=== PATIENT | male | born 1985 | race American Indian/Alaskan Native ===

== ENCOUNTER 2018-07-02 11:02 | Emergency (ER) | payer SELFPAY ==
--- NOTE | 2018-07-02 12:30 | Emergency Department Report ---
Vomiting/Diarrhea - HPI Chief Complaint: Abdominal Pain Stated Complaint: STOMACH PAIN/VOMIT Time Seen by Provider: 07/02/18 12:10 Duration: 3 Days Severity: moderate Nausea/Vomiting Severity: Moderate Diarrhea Severity: None Pain Location: Epigastric Pain Severity: Moderate Symptoms: No Watery Diarrhea, No Bloody diarrhea, No Fever, No Able to Tolerate Fluids, No Recent Unusual Foods, No Recent Untreated Water, No Recent use of Antibiotics, No Family w/ Similar Symptoms, No Contacts w/ Similar Symptoms, No Rash, No Hematuria, No Recent URI Symptoms Other History: This is a 29-year-old male who presents with intermittent abdominal pain for 3 days. Patient states he was seen here in this emergency room on June 24 on pain medication which helped for a few days. Patient states the vomiting increase in abdominal cramping feels like something is falling of episodic epigastric region. He also complains of right side jaw swelling and toothache. His vomiting has aggravated known cavity on the right lower side. He is able to drink but everything come up shortly after drinking or eating. Patient denies fever, frequency, urgency, dysuria, penile discharge , cough, chest pain, or shortness of breath. ED Review of Systems ROS: Stated complaint: STOMACH PAIN/VOMIT Other details as noted in HPI Constitutional: denies: chills, fever ENT: dental pain. denies: ear pain, throat pain, congestion Respiratory: denies: cough, shortness of breath, wheezing Cardiovascular: denies: chest pain, palpitations Gastrointestinal: abdominal pain (epigastric pain), nausea, vomiting. denies: diarrhea, constipation, hematochezia Genitourinary: denies: urgency, dysuria Skin: denies: rash, lesions Neurological: denies: headache, weakness, paresthesias ED Past Medical Hx - Past Medical History Previous Medical History?: No - Surgical History Past Surgical History?: No - Social History Smoking Status: Never Smoker Substance Use Type: None - Medications Home Medications: Home Medications Medication Instructions Recorded Confirmed Last Taken Type Cyclobenzaprine HCl [Flexeril 5 MG 5 mg PO Q8HR PRN #15 tablet 08/30/15 Unknown Rx TAB] traMADol [Ultram 50 MG tab] 50 mg PO Q6HR PRN #15 tablet 08/30/15 Unknown Rx Famotidine [Pepcid] 20 mg PO BID #20 tablet 06/24/18 Unknown Rx HYDROcodone/APAP 5-325 [[place] 1 each PO Q6HR PRN #7 tablet 06/24/18 Unknown Rx 5/325] Amoxicillin 500 mg PO BID #14 capsule 07/02/18 Unknown Rx Naproxen [Naprosyn] 500 mg PO TID #12 tablet 07/02/18 Unknown Rx Omeprazole 40 mg PO DAILY #30 capsule.dr 07/02/18 Unknown Rx Ondansetron [Zofran Odt] 4 mg PO TID PRN #10 tab.rapdis 07/02/18 Unknown Rx amLODIPine [Norvasc] 5 mg PO DAILY #14 tab 07/02/18 Unknown Rx hydroCHLOROthiazide 12.5 mg PO DAILY #14 tablet 07/02/18 Unknown Rx [Hydrochlorothiazide] Vomiting Diarrhea Exam - Exam General: Vital signs noted. No distress. Alert and acting appropriately. HEENT: Yes Moist Mucous Membranes (dental caries #28, mucosal swelling), No Pharyngeal Erythema, No Pharyngeal Exudates, No Rhinorrhea, No Conjuctival Injection, No Frontal Tenderness, No Maxillary Tenderness Neck: No Adenopathy, No Rigidity Lungs: Yes Clear Lung Sounds, Yes Good Air Exchange, No Wheezes, No Stridor, No Cough, No Nasal Flaring, No Retractions, No Use of Accessory Muscles Heart exam: Regular: Yes, Murmur: No, Tachycardia: No Abdomen: Tenderness: No, Peritoneal Signs: No, Distention: No, Hyperactive Bowel sounds: No Skin exam: Rash: No, Edema: No, Normal turgor: Yes Neurologic: Alert and oriented, no deficits. Musculoskeletal: Unremarkable. ED Course Vital Signs 07/02/18 11:42 Temperature 97.8 F Pulse Rate 93 H Respiratory 18 Rate Blood Pressure 195/111 O2 Sat by Pulse 99 Oximetry Vital Signs 07/02/18 07/02/18 11:42 14:35 Temperature 97.8 F Pulse Rate 93 H 90 Respiratory 18 18 Rate Blood Pressure 195/111 Blood Pressure 158/108 [Right] O2 Sat by Pulse 99 Oximetry ED Medical Decision Making - Lab Data Result diagrams: 07/02/18 13:22 07/02/18 13:22 Lab Results 07/02/18 07/02/18 07/02/18 Range/Units 13:22 13:22 Unknown WBC 5.2 (4.5-11.0) K/mm3 RBC 5.72 H (3.65-5.03) M/mm3 Hgb 14.5 (11.8-15.2) gm/dl Hct 45.6 (35.5-45.6) % MCV 80 L (84-94) fl MCH 25 L (28-32) pg MCHC 32 (32-34) % RDW 13.7 (13.2-15.2) % Plt Count 241 (140-440) K/mm3 [place] % (Auto) Kennel Supervisor Sodium 139 (137-145) mmol/L Potassium 4.7 (3.6-5.0) mmol/L Chloride 97.3 L (98-107) mmol/L Carbon Dioxide 30 (22-30) mmol/L Anion Gap 16 mmol/L BUN 8 L (9-20) mg/dL Creatinine 0.9 (0.8-1.5) mg/dL Estimated GFR > 60 ml/min BUN/Creatinine Ratio 9 % Glucose 88 (75-100) mg/dL Calcium 9.8 (8.4-10.2) mg/dL Total Bilirubin 0.60 (0.1-1.2) mg/dL AST 29 (5-40) units/L ALT 16 (7-56) units/L Alkaline Phosphatase 97 (35-129) units/L Total Protein 7.5 (6.3-8.2) g/dL Albumin 4.1 (3.9-5) g/dL Albumin/Globulin Ratio 1.2 % Lipase 16 (13-60) units/L Urine Color Yellow (Yellow) Urine Turbidity Clear (Clear) Urine pH 5.0 (5.0-7.0) Ur Specific [place] 1.005 (1.003-1.030) Urine Protein <15 mg/dl (Negative) mg/dL Urine Glucose (UA) Neg (Negative) mg/dL Urine Ketones Neg (Negative) mg/dL Urine Blood Sm (Negative) Urine Nitrite Neg (Negative) Urine Bilirubin Neg (Negative) Urine Urobilinogen < 2.0 (<2.0) mg/dL Ur Leukocyte Esterase Neg (Negative) Urine WBC (Auto) < 1.0 (0.0-6.0) /HPF Urine RBC (Auto) 3.0 (0.0-6.0) /HPF Urine Mucus Few /HPF - Medical Decision Making Patient was examined by me. Blood pressure elevated on arrival and patient is in no acute distress. Patient given Toradol, Zofran, and Pepcid while in ER. Obtained a labs. All labs are unremarkable. Patient seen in this ER with recent CT with no acute finding on June 24. On physical exam no abdominal tenderness or active vomiting. There is mucosal swelling and dental caries that #28. Start amlodipine and HCTZ for hypertension and f/u with PCP. Patient will be started on amoxicillin and naproxen for dental caries. Start omeprazole for gastritis. Follow-up with gastroenterology for continued care. Patient discharged home in stable condition. Follow up with PCP in 2-3 days. Critical care attestation.: If time is entered above; I have spent that time in minutes in the direct care of this critically ill patient, excluding procedure time. ED Disposition Clinical Impression: Acute abdominal pain, Nausea and vomiting in adult, Dental caries, Asymptomatic hypertension Gastritis Qualifiers: Gastritis type: superficial Chronicity: acute Gastritis bleeding: without bleeding Qualified Code(s): K29.00 - Acute gastritis without bleeding Hypertension Qualifiers: Hypertension type: essential hypertension Qualified Code(s): I10 - Essential ( primary) hypertension Disposition: TO HOME OR SELFCARE Is pt being admited?: No Does the pt Need Aspirin: No Condition: Stable Instructions: Dental Caries (ED), Gastroenteritis (ED), Acute Nausea and Vomiting (ED), Hypertension (ED) Additional Instructions: Frequent hand washing is important to reduce spread. Prompt disinfection of contaminated surfaces with household chlorine bleach- based domain architect and washing of soiled clothing and bedding should be advised. If food or water is thought to be contaminated, it should be avoided. Increase fluid intake. Drinks high in sugars such as carbonated soft drinks, fruit juice, and highly sugared liquids should be avoided. Follow-up with gastroenterology from referral for further evaluation. Follow-up with dentist for continued care tooth pain. Prescriptions: amLODIPine [Norvasc] 5 mg PO DAILY #14 tab Amoxicillin 500 mg PO BID #14 capsule hydroCHLOROthiazide [Hydrochlorothiazide] 12.5 mg PO DAILY #14 tablet Naproxen [Naprosyn] 500 mg PO TID #12 tablet Omeprazole 40 mg PO DAILY #30 capsule. Ondansetron [Zofran Odt] 4 mg PO TID PRN #10 tab.rapdis PRN Reason: Nausea Referrals: [facility] [Outside] - 3-5 Days [facility] [Provider Group] - 3-5 Days [facility] [Outside] - 3-5 Days [facility] [Outside] - 3-5 Days [facility] [Outside] - 3-5 Days Forms: Work/School Release Form(ED) Time of Disposition: 14:28
[2018-07-02] MEDS ORDERED: TORADOL IM ONE (12:36)
[2018-07-02] MEDS ORDERED: ZOFRAN ODT PO ONE (12:36)
[2018-07-02 13:26] LABS: Bilirubin,Urine NEG (Negative); Blood,Urine SM (Negative); Color,Urine Yellow (Yellow); Mucus,Urine FEW /HPF; Protein,Urine <15 mg/dL mg/dL (Negative); Urobilinogen,Urine < 2.0 mg/dL (<2.0)
[2018-07-02 13:29] LABS: WBC,Urine < 1.0 /HPF (0.0-6.0)
[2018-07-02 13:42] LABS: Hematocrit 45.6 % (35.5-45.6); Hemoglobin 14.5 gm/dl (11.8-15.2); Mean Corpuscular HGB Conc 32 % (32-34); Mean Corpuscular Volume 80 fl (84-94); Platelet Count 241 K/mm3 (140-440); Red Blood Count 5.72 M/mm3 (3.65-5.03); Red Cell Distribution Width 13.7 % (13.2-15.2)
[2018-07-02 13:45] LABS: Mean Corpuscular Hemoglobin 25 pg (28-32)
[2018-07-02] MEDS ORDERED: PEPCID PO ONE (13:56)
[2018-07-02 14:04] LABS: Alanine Aminotransferase 16 units/L (7-56); Albumin 4.1 g/dL (3.9-5); BUN/Creatinine Ratio 9; Blood Urea Nitrogen 8 mg/dL (9-20); Calcium 9.8 mg/dL (8.4-10.2); Hemolysis Index 11; Lipase 16 units/L (13-60)
[2018-07-02 14:32] LABS: Basophils % (Manual) 0 % (0.0-1.8); Total Cells Counted 100
[2018-07-02 14:33] LABS: Anisocytosis 1+; Hypochromasia 1+; Platelet Estimate Cons
[2018-07-02 14:37] VITALS: BP 158/108
== END 2018-07-02 14:51 | disposition home or self-care (01) ==
LOC: ED 11:02
DX: K29.70 Gastritis, unspecified, without bleeding (principal); K08.89 Other specified disorders of teeth and supporting structures; I10 Essential (primary) hypertension
CPT/HCPCS: 36415; 80053; 81001; 83690; 85007; 85025; 96372; 99283; J1885; Q0162

== ENCOUNTER 2021-02-15 11:07 | Emergency (ER) | payer SELFPAY ==
[2021-02-15 11:31] VITALS: BP 152/97
--- NOTE | 2021-02-15 12:07 | Emergency Department Report ---
ED General Adult HPI - General Chief complaint: Fall Stated complaint: FALL/BACK PAIN Time Seen by Provider: 02/15/21 12:04 Source: patient Mode of arrival: Ambulatory Limitations: No Limitations - History of Present Illness Initial comments: 35-year-old gyacp-ncim-fqosachx male patient presents to emergency department with complaints of traumatic left wrist pain starting today. Patient states he was carrying boxes at an apartment complex when he accidentally slipped in a puddle of water from ground-level and used his left hand to break his fall. T here was no resulting head injury or loss of consciousness. States he "twisted" his back in an attempt to keep from dropping the boxes he was carrying. Patient has been ambulatory without assistance since the fall. Denies neck pain, paresthesias, numbness, weakness, shoulder pain, hand pain. Denies all other complaints at this time. Severity scale (0 -10): 8 - Related Data Previous Rx's Medication Instructions Recorded Last Taken Type Cyclobenzaprine HCl [Flexeril 5 MG 5 mg PO Q8HR PRN #15 tablet 08/30/15 Unknown Rx TAB] traMADoL [Ultram 50 MG tab] 50 mg PO Q6HR PRN #15 tablet 08/30/15 Unknown Rx Famotidine [Pepcid] 20 mg PO BID #20 tablet 06/24/18 Unknown Rx HYDROcodone/APAP 5-325 [[place] 1 each PO Q6HR PRN #7 tablet 06/24/18 Unknown Rx 5/325] Amoxicillin 500 mg PO BID #14 capsule 07/02/18 Unknown Rx Naproxen [Naprosyn] 500 mg PO TID #12 tablet 07/02/18 Unknown Rx Omeprazole 40 mg PO DAILY #30 capsule.dr 07/02/18 Unknown Rx Ondansetron [Zofran Odt] 4 mg PO TID PRN #10 tab.rapdis 07/02/18 Unknown Rx amLODIPine 5 mg PO DAILY #14 tab 07/02/18 Unknown Rx hydroCHLOROthiazide 12.5 mg PO DAILY #14 tablet 07/02/18 Unknown Rx [Hydrochlorothiazide] Naproxen 500 mg PO BID #20 tablet 02/15/21 Unknown Rx Allergies Allergy/AdvReac Type Severity Reaction Status Date / Time No Known Allergies Allergy Verified 07/02/18 11:36 ED Review of Systems ROS: Stated complaint: FALL/BACK PAIN Other details as noted in HPI Other: CARDIOVASCULAR: Negative for chest pain. PULMONARY: Negative for dyspnea. GASTROINTESTINAL: Negative for abdominal pain. MUSCULOSKELETAL: Positive for left upper extremity pain and thoracic back pain. NEUROLOGICAL: Negative for headache. INTEGUMENTARY: Negative for ecchymosis. ED Past Medical Hx - Past Medical History Previous Medical History?: No - Surgical History Past Surgical History?: No - Social History Smoking Status: Never Smoker Substance Use Type: None - Medications Home Medications: Home Medications Medication Instructions Recorded Confirmed Last Taken Type Cyclobenzaprine HCl [Flexeril 5 MG 5 mg PO Q8HR PRN #15 tablet 08/30/15 Unknown Rx TAB] traMADoL [Ultram 50 MG tab] 50 mg PO Q6HR PRN #15 tablet 08/30/15 Unknown Rx Famotidine [Pepcid] 20 mg PO BID #20 tablet 06/24/18 Unknown Rx HYDROcodone/APAP 5-325 [[place] 1 each PO Q6HR PRN #7 tablet 06/24/18 Unknown Rx 5/325] Amoxicillin 500 mg PO BID #14 capsule 07/02/18 Unknown Rx Naproxen [Naprosyn] 500 mg PO TID #12 tablet 07/02/18 Unknown Rx Omeprazole 40 mg PO DAILY #30 capsule.dr 07/02/18 Unknown Rx Ondansetron [Zofran Odt] 4 mg PO TID PRN #10 tab.rapdis 07/02/18 Unknown Rx amLODIPine 5 mg PO DAILY #14 tab 07/02/18 Unknown Rx hydroCHLOROthiazide 12.5 mg PO DAILY #14 tablet 07/02/18 Unknown Rx [Hydrochlorothiazide] Naproxen 500 mg PO BID #20 tablet 02/15/21 Unknown Rx ED Physical Exam - General Limitations: No Limitations - Other Other exam information: General: Awake, appropriately interactive, no acute distress. Neck: Supple. Full range of motion intact. Cardiovascular: Normal peripheral perfusion. Pulmonary: No respiratory distress. Patient is speaking normally without use of accessory muscles. Skin: No apparent rashes or lesions. Neurological: No facial asymmetry. Speech is clear. Follows commands. Patient is alert and oriented. Musculoskeletal: Tenderness to palpation throughout the left wrist without obvious deformity or dislocation. Full range of motion intact. No tenderness along the distribution of the anatomical snuffbox. Strong radial pulse. Distal neurovascular and motor/sensory function intact. Back: Patient reports pain along the distribution of the thoracic spine without reproducible tenderness. No step-offs. Strength and sensation intact throughout. Ambulatory without assistance. Psych: Cooperative. Appropriate mood and affect. ED Course Vital Signs 02/15/21 11:29 Temperature 97.8 F Pulse Rate 75 Respiratory 20 Rate Blood Pressure 152/97 [Right] O2 Sat by Pulse 99 Oximetry ED Medical Decision Making - Medical Decision Making Differential diagnosis including but not limited to: sprain, strain, fracture, contusion, dislocation On reevaluation, patient remains stable. Repeat neurovascular exam remains intact. X-rays without acute process. History and exam findings suggestive of left wrist sprain; no clinical indication for further diagnostic work-up on an emergent basis at this time. Patient will be discharged home with Thien wrap, appropriate analgesics, and referral to primary care provider for close outpatient follow-up. Patient expressed understanding and is agreeable to plan of care. RICE precautions discussed. Strict return precautions provided. Repeat exam is unremarkable and benign. History, exam, diagnostic testing, and current condition do not suggest worrisome pathology to warrant further testing, continued ED treatment, admission, or surgical evaluation at this point. Given the low probability of a significant medical illness, it would be more likely to result in harm than benefit to perform further testing at this stage. Discussed findings, presumptive diagnosis, need for follow-up and specific signs/symptoms that should prompt immediate return to the emergency department. Instructions were explained in detail to the patient in addition to giving written discharge information. Patient expressed understanding and was given the opportunity to ask questions, all of which were satisfactorily answered prior to discharge home. Critical care attestation.: If time is entered above; I have spent that time in minutes in the direct care of this critically ill patient, excluding procedure time. ED Disposition Clinical Impression: Strain of thoracic back region Left wrist sprain Qualifiers: Encounter type: initial encounter Qualified Code(s): S63.502A - Unspecified sprain of left wrist, initial encounter Disposition: TO HOME OR SELFCARE Is pt being admited?: No Does the pt Need Aspirin: No Condition: Stable Instructions: Muscle Strain, [id number], Wrist Sprain, Adult Additional Instructions: Take Tylenol every 4 hours as needed for pain. Take Naprosyn twice daily with food as needed for pain. Wear Thien wrap as directed. Keep left wrist elevated as often as possible to reduce swelling. Apply ice to the affected area as needed to reduce swelling. Follow-up with primary care provider this week. Call today to schedule an appointment. See referral information below. Return to the emergency department immediately for new or worsening symptoms. Prescriptions: Naproxen 500 mg PO BID #20 tablet Referrals: PRIMARY MD KELLY [Primary Care Provider] - 3-5 Days RAMIREZ PENALOZA MD [Staff Physician] - 3-5 Days [facility] [Outside] - 3-5 Days [facility] [Outside] - 3-5 Days [facility] [Outside] - 3-5 Days [facility] [Provider Group] - 3-5 Days Time of Disposition: 14:04
--- NOTE | 2021-02-15 13:53 | XRay Report ---
LEFT WRIST 3 VIEWS INDICATION: FOOSH. Fall on outstretched hand. Injury. COMPARISON: None. IMPRESSION: No acute osseous or soft tissue abnormality. No significant DJD. LEFT ELBOW 3 VIEWS INDICATION: FOOSH. Fall on outstretched hand. Injury. COMPARISON: None. IMPRESSION: No acute osseous or soft tissue abnormality. No significant DJD. Large olecranon spur is noted. Signer Name: Gonzalo Talbot Jr, MD Signed: 02/15/2021 1:49 PM Workstation Name: [id number]
== END 2021-02-15 16:21 | disposition home or self-care (01) ==
LOC: ED 11:07
DX: S63.592A Other specified sprain of left wrist, initial encounter (principal); S29.012A Strain of muscle and tendon of back wall of thorax, initial encounter; Z79.899 Other long term (current) drug therapy; W01.0XXA Fall on same level from slipping, tripping and stumbling without subsequent striking against object, initial encounter; Y93.89 Activity, other specified; Y92.89 Other specified places as the place of occurrence of the external cause; Y99.8 Other external cause status
CPT/HCPCS: 99283

== ENCOUNTER 2021-07-17 13:08 | Emergency (ER) | payer SELFPAY ==
[2021-07-17] MEDS ORDERED: MORPHINE 4 MG/1 ML INJ ONE (13:48)
[2021-07-17] MEDS ORDERED: ONDANSETRON 4 MG/2 ML INJ ONE (14:05)
[2021-07-17] MEDS ORDERED: MORPHINE 2 MG/1 ML INJ IV ONE (14:09)
[2021-07-17] MEDS ORDERED: ONDANSETRON 4 MG/2 ML INJ IV ONE (14:10)
--- NOTE | 2021-07-17 14:15 | Emergency Department Report ---
ED Headache HPI - General Chief Complaint: Dizziness Stated Complaint: HEADACHE Time Seen by Provider: 07/17/21 13:42 - History of Present Illness Initial Comments: 36-year-old male presents to ED with headache. Patient reports headache onset was gradual in nature. States it became is worse as he donated plasma today. He reports pain to the top of his head. He denies any aggravating or alleviating factors. Patient also reports some associated dizziness and chest pain. Patient states chest pain is left-sided, tight in nature. He denies any nausea or vomiting, shortness of breath, abdominal pain, fever. Blood pressure is currently elevated. Patient denies any history of hypertension. However, when I look at patient summary from his previous visits here at this facility hypertension is listed and he has been previously prescribed antihypertensives. Timing/Duration: 1-3 hours Quality: moderate Recent Head Trauma: no recent headache/trauma Associated Symptoms: denies: fever/chills, loss of consciousness, nause a/vomiting, stiff neck, vision changes, weakness Allergies/Adverse Reactions: Allergies No Known Allergies Allergy (Verified 07/02/18 11:36) Home Medications: Ambulatory Orders Cyclobenzaprine HCl [Flexeril 5 MG TAB] 5 mg PO Q8HR PRN #15 tablet 08/30/15 traMADoL [Ultram 50 MG tab] 50 mg PO Q6HR PRN #15 tablet 08/30/15 Famotidine [Pepcid] 20 mg PO BID #20 tablet 06/24/18 HYDROcodone/APAP 5-325 [[place] 5/325] 1 each PO Q6HR PRN #7 tablet 06/24/18 Amoxicillin 500 mg PO BID #14 capsule 07/02/18 Naproxen [Naprosyn] 500 mg PO TID #12 tablet 07/02/18 Omeprazole 40 mg PO DAILY #30 capsule. 07/02/18 Ondansetron [Zofran Odt] 4 mg PO TID PRN #10 tab.smitha 07/02/18 hydroCHLOROthiazide [Hydrochlorothiazide] 12.5 mg PO DAILY #14 tablet 07/02/18 Naproxen 500 mg PO BID #20 tablet 02/15/21 amLODIPine 5 mg PO DAILY #30 tab 07/17/21 hydroCHLOROthiazide [HCTZ] 25 mg PO QDAY #30 tablet 07/17/21 ED Review of Systems ROS: Stated complaint: HEADACHE AFTER REFILL Other details as noted in HPI Comment: All other systems reviewed and negative Constitutional: denies: chills, fever Respiratory: denies: shortness of breath Cardiovascular: chest pain Gastrointestinal: denies: abdominal pain, nausea, vomiting Neurological: headache. denies: weakness, numbness, paresthesias ED Past Medical Hx - Social History Smoking Status: Never Smoker Substance Use Type: None - Medications Home Medications: Home Medications Medication Instructions Recorded Confirmed Last Taken Type Cyclobenzaprine HCl [Flexeril 5 MG 5 mg PO Q8HR PRN #15 tablet 08/30/15 Unknown Rx TAB] traMADoL [Ultram 50 MG tab] 50 mg PO Q6HR PRN #15 tablet 08/30/15 Unknown Rx Famotidine [Pepcid] 20 mg PO BID #20 tablet 06/24/18 Unknown Rx HYDROcodone/APAP 5-325 [[place] 1 each PO Q6HR PRN #7 tablet 06/24/18 Unknown Rx 5/325] Amoxicillin 500 mg PO BID #14 capsule 07/02/18 Unknown Rx Naproxen [Naprosyn] 500 mg PO TID #12 tablet 07/02/18 Unknown Rx Omeprazole 40 mg PO DAILY #30 capsule.dr 07/02/18 Unknown Rx Ondansetron [Zofran Odt] 4 mg PO TID PRN #10 tab.rapdis 07/02/18 Unknown Rx hydroCHLOROthiazide 12.5 mg PO DAILY #14 tablet 07/02/18 Unknown Rx [Hydrochlorothiazide] Naproxen 500 mg PO BID #20 tablet 02/15/21 Unknown Rx amLODIPine 5 mg PO DAILY #30 tab 07/17/21 Unknown Rx hydroCHLOROthiazide [HCTZ] 25 mg PO QDAY #30 tablet 07/17/21 Unknown Rx ED Physical Exam - General Limitations: No Limitations General appearance: alert, in no apparent distress - Head Head exam: Present: atraumatic, normocephalic - Eye Eye exam: Present: normal appearance, PERRL, EOMI - ENT ENT exam: Present: mucous membranes moist - Neck Neck exam: Present: normal inspection, full ROM. Absent: tenderness, meningismus - Respiratory Respiratory exam: Present: normal lung sounds bilaterally. Absent: respiratory distress - Cardiovascular Cardiovascular Exam: Present: regular rate, normal rhythm - GI/Abdominal GI/Abdominal exam: Present: soft. Absent: distended, tenderness - Extremities Exam Extremities exam: Present: normal inspection - Neurological Exam Neurological exam: Present: alert, oriented X3, CN II-XII intact. Absent: motor sensory deficit - Psychiatric Psychiatric exam: Present: anxious - Skin Skin exam: Present: warm, dry, intact, normal color ED Course Vital Signs 07/17/21 07/17/21 07/17/21 13:19 13:30 13:32 Temperature 97.8 F Pulse Rate 70 67 Respiratory 22 28 H Rate Blood Pressure 227/116 Blood Pressure [Right] O2 Sat by Pulse 100 100 Oximetry 07/17/21 07/17/21 07/17/21 13:45 14:00 14:15 Temperature Pulse Rate 76 64 64 Respiratory 23 20 20 Rate Blood Pressure 207/107 207/107 201/106 Blood Pressure [Right] O2 Sat by Pulse 100 100 100 Oximetry 07/17/21 07/17/21 07/17/21 14:31 14:45 15:01 Temperature Pulse Rate 65 62 63 Respiratory 17 27 H 17 Rate Blood Pressure 203/109 203/109 201/107 Blood Pressure [Right] O2 Sat by Pulse 100 100 100 Oximetry 07/17/21 07/17/21 07/17/21 15:15 15:31 15:45 Temperature Pulse Rate 60 66 79 Respiratory 21 27 H 29 H Rate Blood Pressure 201/107 176/102 176/102 Blood Pressure [Right] O2 Sat by Pulse 100 97 99 Oximetry 07/17/21 07/17/21 16:01 16:20 Temperature Pulse Rate 101 H 95 H Respiratory 28 H 17 Rate Blood Pressure 171/98 Blood Pressure 146/87 [Right] O2 Sat by Pulse 99 99 Oximetry ED Medical Decision Making - Lab Data Result diagrams: 07/17/21 14:05 07/17/21 14:05 - EKG Data -: EKG Interpreted by Ma EKG shows normal: sinus rhythm, axis, intervals, QRS complexes, ST-T waves Rate: normal - EKG Data Interpretation: no acute changes - Radiology Data Radiology results: report reviewed, image reviewed - Medical Decision Making CT head negative. Blood pressure improved following medication. Headache re solved. EKG unremarkable, troponin negative. Spoke with patient regarding positive drug screen. Patient will be discharged at this time with prescriptions. Outpatient follow-up advised, return precautions given. - Differential Diagnosis Uncontrolled hypertension, hemorrhagic CVA, ACS Critical care attestation.: If time is entered above; I have spent that time in minutes in the direct care of this critically ill patient, excluding procedure time. ED Disposition Clinical Impression: Headache, Uncontrolled hypertension, Amphetamine abuse Disposition: 01 HOME / SELF CARE / HOMELESS Is pt being admited?: No Condition: Stable Instructions: Amphetamines Use Disorder, Hypertension, Adult, [id number], Managing Your Hypertension, Hypertension (ED) Prescriptions: amLODIPine 5 mg PO DAILY #30 tab hydroCHLOROthiazide [HCTZ] 25 mg PO QDAY #30 tablet Referrals: PRIMARY CARE, [Primary Care Provider] - 3-5 Days [facility] [Provider Group] - 3-5 Days [facility] [Outside] - 3-5 Days Time of Disposition: 16:14
[2021-07-17 14:30] LABS: Hemoglobin 14.2 gm/dl (11.8-15.2); Mean Corpuscular HGB Conc 31 % (32-34); Mean Corpuscular Volume 83 fl (84-94); Platelet Count 173 K/mm3 (140-440); Red Blood Count 5.56 M/mm3 (3.65-5.03); Red Cell Distribution Width 13.8 % (13.2-15.2)
[2021-07-17 14:31] LABS: Hematocrit 45.8 % (35.5-45.6)
[2021-07-17 14:39] LABS: INR 1.03 (0.87-1.13)
[2021-07-17 14:40] LABS: Partial Thromboplastin Time 27.9 Sec. (24.2-36.6)
[2021-07-17 14:42] LABS: BUN/Creatinine Ratio 13; Blood Urea Nitrogen 10 mg/dL (9-20); Calcium 8.4 mg/dL (8.4-10.2); Hemolysis Index 21
--- NOTE | 2021-07-17 14:43 | Cat Scan Report ---
CT HEAD WITHOUT CONTRAST INDICATION / CLINICAL INFORMATION: HEADACHE. TECHNIQUE: Axial imaging performed from the skull apex through the skull base without the use of cont rast. Sagittal and coronal reformatted images. All CT scans at this location are performed using CT dose reduction for ALARA by means of automated exposure control. COMPARISON: None available. FINDINGS: CEREBRAL PARENCHYMA: No significant abnormality. No acute territorial infarct. HEMORRHAGE: None. EXTRA-AXIAL SPACES: Normal in size and morphology for the patient's age. VENTRICULAR SYSTEM: Normal in size and morphology for the patient's age. MIDLINE SHIFT OR HERNIATION: None. CEREBELLUM / BRAINSTEM: No significant abnormality. CALVARIUM: No significant abnormality. ORBITS: Normal as visualized. PARANASAL SINUSES / MASTOID AIR CELLS: Normal as visualized. SOFT TISSUES of HEAD: No significant abnormality. ADDITIONAL FINDINGS: None. IMPRESSION: No acute intracranial abnormality. Signer Name: Gonzalo Talbot Jr, MD Signed: 07/17/2021 2:38 PM Workstation Name: [id number]
[2021-07-17] MEDS ORDERED: hydrALAZINE 20 MG/1 ML INJ IV ONE (15:15)
[2021-07-17] MEDS ORDERED: SODIUM CHLORIDE 0.9% 250ML 250 ML IV ONE (15:15)
[2021-07-17] MEDS ORDERED: BUTALB/ACETAMINOPHEN/CAFFEINE TAB PO ONE (15:15)
[2021-07-17 15:43] LABS: Benzodiazepines Screen,Urine Negative; Cocaine Screen,Urine Negative; Methadone Screen,Urine Negative; Opiate Screen,Urine Negative
[2021-07-17 15:47] LABS: Total Cells Counted 100
[2021-07-17 15:48] LABS: Hypochromasia 1+; Platelet Estimate Consistent w Auto
[2021-07-17 16:22] VITALS: BP 146/87
[2021-07-17 16:22] LABS: Amphetamine Screen,Urine Positive; Cannabinoid Screen,Urine Positive
--- NOTE | 2021-07-18 08:38 | Electrocardiograph Report ---
[facility] Test Date: 2021-07-17 Test Time: 13:26:45 Pat Name: GREYSON MCGEE Department: Room: Gender: M [employer]' Coordinator: : 1985 Requested By: FRANCINE HORTON Order Number: [id number] Reading MD: Antoni Payne Measurements Intervals [place] Rate: 63 P: 58 PA: 121 QRS: 51 QRSD: 88 T: 35 QT: 434 QTc: 445 Interpretive Statements Sinus rhythm No previous ECG available for comparison Electronically Signed On 07-18-2021 8:38:17 EDT by Antoni Payne
== END 2021-07-17 17:04 | disposition home or self-care (01) ==
LOC: ED 13:08
DX: I10 Essential (primary) hypertension (principal); R51.9 Headache, unspecified; F15.10 Other stimulant abuse, uncomplicated
CPT/HCPCS: 36415; 70450; 80048; 80307; 84484; 85007; 85025; 85610; 85730; 93005; 96374; 96375; 99284; J0360; J2270; J2405; J7050